=== PATIENT | female | born 1995 | race American Indian/Alaskan Native ===

== ENCOUNTER 2022-06-12 06:13 | Outpatient (CLI) | payer MEDICAID ==
[2022-06-12 06:50] VITALS: BP 127/58
--- NOTE | 2022-06-12 08:11 | Ultrasound Report ---
ULTRASOUND BIOPHYSICAL PROFILE ULTRASOUND OB LIMITED INDICATION: Decreased movement TECHNIQUE: Transabdominal ultrasound imaging. COMPARISON: None FINDINGS: breathing movement = 2 Gross body movement = 2 tone = 2 Qualitative amniotic fluid volume = 2 Total biophysical score = 8/8 Amniotic fluid index is 16.8 cm. Presentation is breech. heart rate is 154 beats per minute. IMPRESSION: biophysical profile equals /8. Signer Name: Isai Vela Jr, MD Signed: 06/12/2022 8:06 AM Workstation Name: [id number]
== END 2022-06-12 08:57 | disposition home or self-care (01) ==
LOC: TRG 06:13 → APU 06:20 → TRG 08:57
PROVIDERS: ATTEND Obstetrics & Gynecology
DX: O36.8120 Decreased fetal movements, second trimester, not applicable or unspecified (principal); Z3A.25 25 weeks gestation of pregnancy
CPT/HCPCS: 59025; 76815; 76819